=== PATIENT | male | born 1990 | race Caucasian/White ===

== ENCOUNTER 2021-09-11 12:28 | Inpatient (IN) | payer MEDICAID, SELFPAY ==
--- NOTE | 2021-09-11 12:50 | ED_ITS ---
HPI - General Adult General: Chief complaint: Psychiatric Symptoms Stated complaint: ETOH, DRUG PROBLEMS Time Seen by Provider: 09/11/21 12:34 History of Present Illness: HPI: [31]yo patient w/ hx of depression and anxiety BIBA for suicidal ideation with plan and severe anxiety. Patient tells me that his girlfriend Wyatt left him recently and he has been depressed since then. Patient tells me that he plans to cut himself and no longer wants to live anymore. Patient is extremely distressed and feels anxious. Patient tells staff member cannot leave him alone by himself On arrival, the patient is AAOx3 and cooperative with my evaluation. No focal complaints of chest pain, shortness of breath, palpitations, N/V, focal GI/ complaints. No complaints of hallucinations. Onset: acutely x 2 days Duration: ongoing Location: home Severity: severe Associated symptoms: Deny chest pain, dyspnea, nausea, rash, palpitations or vomiting Review of Systems Const: Denies: fever(s) or chills Eyes: Denies: change in vision ENMT: Denies: mouth pain Card: Denies: chest pain or palpitations Resp: Denies: dyspnea or non-productive cough GI: Denies: abdominal pain, nausea, vomiting or diarrhea : Denies: dysuria Musc: Denies: extremity pain Skin/Breast: Denies: rash or new lesions Neuro: Denies: weakness in extremities Psych: Reports: depression, mood swings, panic attacks and suicidal ideation Julio C/Lymph: Denies: easy bruising PFSH ED PFSH: Medical History (Updated 09/11/21 @ 13:02 by Massiel Tobar MD) Anxiety Depression Social History (Updated 09/11/21 @ 13:02 by Massiel Tobar MD) Smoking and tobacco status: former smoker Alcohol intake: current Substance/Drug Use: never Adopted: No Physical Exam Const: COMMON NORMALS: alert HENMT: COMMON NORMALS: atraumatic HEAD & SCALP: atraumatic MOUTH: moist mucous membranes not abnormal Eye: COMMON NORMALS: EOMs intact bilaterally and conjunctivae normal CONJUNCTIVA: Yes conjunctivae normal Neck/C-Spine: COMMON NORMALS: full ROM and supple Resp: COMMON NORMALS: normal respiratory effort and clear to auscultation bilaterally AUSCULTATION: clear to auscultation bilaterally Cardio: COMMON NORMALS: regular rate RATE: regular rate GI: COMMON NORMALS: Soft to palpation and non-tender PALPATION: Yes Soft to palpation Extremity: COMMON NORMALS: full ROM Neuro: SENSORIUM/ORIENTATION: Yes alert MOTOR EXAM: No Abnormal motor strength present and Other motor observations present (no focal motor deficits) Psych: COMMON NORMALS: speech normal SPEECH: Yes normal speech MOOD & AFFECT: Yes depressed mood Course Vital Signs: Vital signs: Vital Signs Temperature 98.8 F 09/11/21 16:37 Pulse Rate 124 H 09/11/21 16:37 Respiratory Rate 18 09/12/21 06:00 Blood Pressure 120/77 09/11/21 16:37 Pulse Oximetry 95 09/11/21 16:37 MDM - General Adult Medical Decision Making [31]yo patient w/ hx of depression and anxiety presenting for SI with plan and severe anxiety. HDS, exam within normal limit Thoughts are linear and organized, and the patient has no AH/VH, or HI. Clinically the patient displays no overt toxidrome; they are well appearing, with low suspicion for toxic ingestion given history and exam. Symptoms unlikely 2/2 anemia, hypothyroidism, infection, or ICH. Workup: CBC, CMP, Lipase, salicylate/tylenol, UDS Lab findings: wnl [2:00pm] On reassessment, labs and workup wnl. Patient is hemodynamically stable with no acute medical complaints. Case discussed with psychiatric provider Dr. Hamm at [facility] psych inpatient with recommendation for admission. Patient received 4mg of IM ativan for severe anxiety. Disposition: Psych Lab Data : 09/11/21 14:16 09/11/21 14:16 Radiology Impressions Hand X-Ray 09/12/21 07:24 IMPRESSION: Normal RIGHT hand. Laboratory Results WBC 5.7 10^3/uL (4.0-10.0) 09/11/21 14:16 RBC 5.27 10^6/uL (4.1-5.3) 09/11/21 14:16 Hgb 15.2 g/dL (11.7-16.6) 09/11/21 14:16 Hct 45.2 % (42.0-52.0) 09/11/21 14:16 MCV 85.8 fl (80-94) 09/11/21 14:16 MCH 28.8 pg (28.0-34.0) 09/11/21 14:16 MCHC 33.6 g/dL (30.0-36.0) 09/11/21 14:16 RDW 12.1 % (12.1-15.1) 09/11/21 14:16 Plt Count 279 10^3/cmm (130-400) 09/11/21 14:16 MPV 9.6 fL (7.4-10.4) 09/11/21 14:16 Neut % (Auto) 50.1 % 09/11/21 14:16 Lymph % (Auto) 39.5 % 09/11/21 14:16 Pennington % (Auto) 8.1 % 09/11/21 14:16 Eos % (Auto) 1.6 % 09/11/21 14:16 Baso % (Auto) 0.5 % 09/11/21 14:16 Neut # (Auto) 2.86 10^3/uL (1.8-7.7) 09/11/21 14:16 Lymph # (Auto) 2.3 10^3/uL (0.8-4.8) 09/11/21 14:16 Pennington # (Auto) 0.5 10^3/uL (0.2-0.9) 09/11/21 14:16 Eos # (Auto) 0.1 10^3/uL (0.0-0.8) 09/11/21 14:16 Baso # (Auto) 0.0 10^3/uL (0.0-0.1) 09/11/21 14:16 Nucleated RBC % (auto) 0 % 09/11/21 14:16 Nucleated RBCs # 0.0 /100WBC 09/11/21 14:16 Sodium 140 mmol/L (136-145) 09/11/21 14:16 Potassium 3.6 mmol/L (3.5-5.1) 09/11/21 14:16 Chloride 102 mmol/L (98-107) 09/11/21 14:16 Carbon Dioxide 23 mmol/L (22-29) 09/11/21 14:16 Anion Gap 18.6 (5-19) 09/11/21 14:16 BUN 11 mg/dL (6-20) 09/11/21 14:16 Creatinine 1.1 mg/dL (0.7-1.2) 09/11/21 14:16 GFR Calculation 77.1 mL/min (90-130) L 09/11/21 14:16 Glucose 129 mg/dL (65-115) H 09/11/21 14:16 Calculated Osmolality 291 mOsm/kg (285-295) 09/11/21 14:16 Calcium 9.0 mg/dL (8.5-10.5) 09/11/21 14:16 Total Bilirubin 0.2 mg/dL (0.15-1.2) 09/11/21 14:16 AST 22 U/L (0-40) 09/11/21 14:16 ALT 20 U/L (0-41) 09/11/21 14:16 Alkaline Phosphatase 74 IU/L (40-130) 09/11/21 14:16 Total Protein 7.2 g/dL (6.6-8.7) 09/11/21 14:16 Albumin 4.8 g/dL (3.5-5.2) 09/11/21 14:16 Globulin 2.4 g/dL (1.3-4.6) 09/11/21 14:16 Lipase 24 U/L (13-60) 09/11/21 14:16 Salicylates < 0.3 mg/dL (3-10) L 09/11/21 14:16 Acetaminophen < 5.0 ug/mL (10-30) L 09/11/21 14:16 Ethyl Alcohol 100 mg/dL (0-10) H 09/11/21 14:16 Discharge Plan Discharge Patient Disposition: Admitted As Inpatient Admit Provider: Julio Hamm Clinical Impression: Depression with suicidal ideation, Anxiety, Panic attack Condition: Stable Coding Level of Care Code ED Private Branch Exchange Service Adviser for Chg Fwd Exam Comprehensive
[2021-09-11 13:00] VITALS: BP 97/60; PULSE 125; TEMP 36.7; O2SAT 97; BMI 21.5
[2021-09-11] MEDS: LORazepam 2 mg/mL INJ 1 mL IM ×2 (13:57→15:59)
[2021-09-11 14:08] VITALS: BP 97/60; PULSE 125; TEMP 36.7; O2SAT 97
[2021-09-11 14:21] LABS: Basophils % 0.5 %; Eosinophils # 0.1 10^3/uL (0.0-0.8); Eosinophils % 1.6 %; Hematocrit 45.2 % (42.0-52.0); Hemoglobin 15.2 g/dL (11.7-16.6); Lymphocytes # 2.3 10^3/uL (0.8-4.8); Lymphocytes % 39.5 %; Mean Corpuscular HGB Conc 33.6 g/dL (30.0-36.0); Mean Corpuscular Hemoglobin 28.8 pg (28.0-34.0); Mean Corpuscular Volume 85.8 fl (80-94); Mean Platelet Volume 9.6 fL (7.4-10.4); Monocytes # 0.5 10^3/uL (0.2-0.9); Monocytes % 8.1 %; Neutrophils # 2.86 10^3/uL (1.8-7.7); Neutrophils % 50.1 %; Nucleated Red Blood Cells % 0 %; Platelet Count 279 10^3/cmm (130-400); Red Blood Count 5.27 10^6/uL (4.1-5.3); Red Cell Distribution Width 12.1 % (12.1-15.1); White Blood Count 5.7 10^3/uL (4.0-10.0)
--- NOTE | 2021-09-11 14:34 | PC.PHAR ---
PT ABLE TO VERIFY NAMES OF MEDICATIONS AND SOME OF THE MG. CALLED [facility] TO VERIFY CHLORPROMAZINE, BOTH METHYLPHENIDATE, OLANZAPINE, VIIBRYD, AND ZALEPLON LAST FILLED AND DAY SUPPLY AND DIRECTIONS. CALLED [facility] TO VERIFY COLANZEPAM, GABAPENTIN, HYDROXYZINE PAMOATE AND XANAX LAST FILLED, DAY SUPPLY AND DIRECTIONS.
[2021-09-11 14:42] LABS: Alanine Aminotransferase 20 U/L (0-41); Albumin Level 4.8 g/dL (3.5-5.2); Alcohol Level 100 mg/dL (0-10); Alkaline Phosphatase 74 IU/L (40-130); Anion Gap 18.6 (5-19); Aspartate Amino Transferase 22 U/L (0-40); Blood Urea Nitrogen 11 mg/dL (6-20); Carbon Dioxide 23 mmol/L (22-29); Chloride 102 mmol/L (98-107); Globulin 2.4 g/dL (1.3-4.6); Glomerular Filtration Rate 77.1 mL/min (90-130); Glucose 129 mg/dL (65-115); Lipase 24 U/L (13-60); Osmolality Calculated 291 mOsm/kg (285-295); Potassium 3.6 mmol/L (3.5-5.1); Sodium 140 mmol/L (136-145); Total Bilirubin 0.2 mg/dL (0.15-1.2); Total Protein 7.2 g/dL (6.6-8.7)
[2021-09-11 14:45] LABS: Acetaminophen < 5.0 ug/mL (10-30); Salicylate < 0.3 mg/dL (3-10)
[2021-09-11] MEDS: ALPRAZolam 0.5 mg Tablet 1 MG PO (15:59)
[2021-09-11] MEDS: nicotine 21 mg Patch 1 PATCH TRANSDERMA (15:59)
--- NOTE | 2021-09-11 16:23 | PC.NURSE ---
Pt was extremely anxious and very particular about his medication. Pt continued to become more agitated, Dr Hamm evaluated. Pt stated taht he wanted to go to [place] but, agreed to go to [facility]. To this nurse's knowledge, Pt does not have a 96hr hold.
[2021-09-11 16:37] VITALS: BP 120/77; PULSE 124; RESP 18; TEMP 37.1; O2SAT 95
--- NOTE | 2021-09-11 16:58 | P.NPUHP_ITS ---
Providers/Chief Complaint Admitting Physician: Julio Hamm MD Primary Care Provider: RAHUL Maguire Chief Complaint: ETOH, DRUG PROBLEMS HPI NPU History of Present Illness Luis Miguel Boss is a 31 year old male who presented to the emergency department with the following report: Chief complaint: Psychiatric Symptoms Stated complaint: ETOH, DRUG PROBLEMS Time Seen by Provider: 09/11/21 12:34 History of Present Illness: HPI: [31]yo patient w/ hx of depression and anxiety BIBA for suicidal ideation with plan and severe anxiety. Patient tells me that his girlfriend Wyatt left him recently and he has been depressed since then. Patient tells me that he plans to cut himself and no longer wants to live anymore. Patient is extremely distressed and feels anxious. Patient tells staff member cannot leave him alone by himself On arrival, the patient is AAOx3 and cooperative with my evaluation. No focal complaints of chest pain, shortness of breath, palpitations, N/V, focal GI/ complaints. No complaints of hallucinations. Onset: acutely x 2 days Duration: ongoing Location: home Severity: severe Associated symptoms: Deny chest pain, dyspnea, nausea, rash, palpitations or vomiting. He was admitted to the neuropsychiatric unit for definitive treatment of those issues. Patient presents today in absolute distress. Trembling panicking and suggested every moment if he does not get some medication or intervention he is going to explode or implode. Significant time was spent with security and the mental health director trying to work with patient to get his needs made in the empathetic way. He vacillated between crying about being there and threatening this keno writer or others. At times he had to be diverted as he threatened to attack other people on the unit and guarded towards him. He was a nearly combative historian as questions would be hijacked to him needing a benzodiazepine of some sort or he is going to lose my mind. There was some question about his medications and initially it was thought that he had overtaken his Klonopin and was in some sort of withdrawal. But eventually was identified that he had been given Klonopin 1 mg 1 daily as needed and has taken 3 of them appropriately. He also had been on Concerta and Ritalin for ADHD and in his panic was asking for Suboxone. He was on a 96-hour hold but now denies having any self-injurious/lethal intent. However we discussed his level of agitation makes it impossible to evaluate him and agreed for discharge with any reasonableness. We discussed that we would continue his medication as best we can and evaluate him for discharge tomorrow if he is able to maintain his demeanor and is able to discontinue his aggressive posturing. Contact with his mother allowed us to assess his lack of overuse of the Klonopin but she expressed extreme concern about his safety. Review of his records show 10 inpatient hospitalizations at this facility between 2011 and 2016 and some limited outpatient services here as well. He denies significant drug use outside of alcohol but some of his records suggest otherwise it was unclear what to take away from his history that is given. An excerpt from his last inpatient hospitalization is provided below for context. Per his 06/05/[address] [facility] inpatient psychiatric evaluation: Date of Service: Jun 05, 2016 Chief Complaint: Depression, suicidal ideation, auditory hallucinations HPI: Mr. Boss 26-year-old male who is known to our behavioral health system, who was brought in by police on a 96 hour hold after expressing suicidal ideation, and auditory hallucinations while in senior living. Mr. Boss was recently discharged from the [facility] in April 2016, he reports that since that time he is had a relapse on alcohol use triggered by a number of psychosocial stressors. In fact it appears that he's had quite intense alcohol use, as he reports that he eventually he started drinking daily to kill himself. Eventually he was picked up by the police and placed in senior living for his safety, and eventually was discharged for breathing contraband into senior living, as he had alcohol in this person. States that he was in senior living for approximately 1 week and after 1 week experience significant worsening depressed mood, hopelessness ray cidal ideation, and also auditory hallucinations specifically in the form of hearing the voice of his grandmother. He states that even prior to his alcohol use that occasionally he would hear voices, and does recall being prescribed Thorazine to help with this. It is unclear at this time the timing of his auditory hallucinations with his drinking pattern. He denies any other substance use. In addition to the symptoms above he does admit to anxiety attacks particularly when he is thinking about recent events, that occasionally may rise to the level of panic. Allergies: Coded Allergies: MILK (Unverified Adverse Reaction, Unknown, cramping,diarrhea, 05/09/16) Pt does not drink milk. Tolerates small amount milk on cereal. Milk ok cooked in foods. Tolerates yogurt, cheese, cot cheese, pudding, ice cream. Uncoded Allergies: ANTIHISTAMINES (Allergy, Unknown, 04/02/12) Active Meds: Current Hospital Medications: Medications (Trade) Dose Ordered Sig/Brenda Route PRN Reason Start Time Stop Time Status Last Admin Dose Admin Lorazepam (Ativan Tab) 0.5 mg Q4H PRN PO FOR MILD ANXIETY 06/04/16 18:30 Lorazepam (Ativan Tab) 1 mg Q4H PRN PO FOR MODERATE ANXIETY 06/04/16 18:30 Lorazepam (Ativan Tab) 2 mg Q4H PRN PO FOR SEVERE ANXIETY 06/04/16 18:30 Lorazepam (Ativan Inj) 2 mg Q4H PRN IM For Severe Aggression 06/04/16 18:30 Haloperidol Lactate (Haldol Inj) 5 mg Q4H PRN IM Severe Aggression 06/04/16 18:30 Diphenhydramine HCl (Benadryl Inj) 50 mg ONCE PRN IV Severe Extrapyramidal Symptoms 06/04/16 18:30 Benztropine Mesylate (Cogentin Tab) 1 mg BID PRN PO Mild Extrapyramidal symptoms 06/04/16 18:30 Benztropine Mesylate (Cogentin Inj) 1 mg ONCE PRN IM Severe Extrapyramidal Symptom 06/04/16 18:30 Acetaminophen (Tylenol Tab) 650 mg Q4H PRN PO FOR MILD PAIN 06/04/16 18:30 Nicotine (Nicoderm Patch) 21 mg DAILY PRN TD FOR WITHDRAWAL 06/04/16 18:30 Nicotine Polacrilex (Nicotine Gum) 2 mg Q2H PRN PO Withdrawal 06/04/16 18:30 Haloperidol (Haldol Tab) 5 mg Q4H PRN PO For agitation 06/04/16 18:30 Lorazepam (Ativan Tab) 2 mg Q4H PRN PO FOR AGITATION 06/04/16 18:30 Trazodone HCl (Trazodone) 100 mg BEDTIME PO 06/04/16 22:00 06/04/16 21:35 Olanzapine (Zyprexa Zydis) 5 mg BID PRN PO AGITATION 06/04/16 21:00 Thiamine Mononitrate (Thiamine Tab) 100 mg DAILY PO 06/06/16 10:00 Multivitamins Therapeutic (Therapeutic Multivitamin) 1 ea DAILY PO 06/05/16 10:00 06/05/16 10:06 Folic Acid/ Cyanocobalamin/ pyridoxin (Folic Acid Tab) 1 mg DAILY PO 06/05/16 10:00 06/05/16 10:06 Lorazepam (Ativan Inj) 2 mg PRN PRN IV FOR WITHDRAWAL 06/05/16 09:15 Lorazepam (Ativan Inj) 2 mg PRN PRN IM for Withdrawal 06/05/16 09:15 Lorazepam (Ativan Tab) 2 mg PRN PRN PO Withdrawal 06/05/16 09:15 Past Medical History Past Medical History: Is as per HPI, history: Details are unchanged from the last admission PAST PSYCHIATRIC HISTORY: -Did not follow-up at [facility] as scheduled because he was in senior living -States that he had not been taking his medications as prescribed which at this time were Viibryd, trazodone, gabapentin PAST FAMILY PSYCHIATRIC HISTORY: -Non-contributory SOCIAL HISTORY: -Recently in senior living as described in HPI PAST MEDICAL HISTORY: -None active Meds NPU Home Medications Medication Instructions Recorded Confirmed Last Taken Type clonazepam 1 mg tablet 1 mg PO DAILY PRN 09/11/21 09/13/21 Unknown History gabapentin 400 mg capsule 800 mg PO TID 09/11/21 09/13/21 Unknown History hydroxyzine pamoate 50 mg capsule 50 mg PO BID 09/11/21 09/13/21 Unknown History methylphenidate HCl 10 mg tablet 10 mg PO DAILY 09/11/21 09/13/21 Unknown History methylphenidate HCl 18 mg 18 mg PO DAILY 09/11/21 09/13/21 Unknown History tablet,extended release 24 hr olanzapine 5 mg tablet 5 mg PO DAILY 09/11/21 09/13/21 Unknown History zaleplon 10 mg capsule 20 mg PO BEDTIME 09/11/21 09/13/21 Unknown History Allergies Allergy/AdvReac Type Severity Reaction Status Date / Time diphenhydramine Allergy Unknown Verified 09/13/21 17:58 [From Benadryl] hydroxyzine [From Vistaril] Allergy Unknown Verified 09/13/21 17:58 PFSH NPU PFSH: Medical History Anxiety Depression Social History Smoking and tobacco status: former smoker Alcohol intake: current Adopted: No Mental Status Exam MSE Comments: This is a well-nourished well-developed white male in hospital scrubs with red hair with adequate grooming and eye contact. No abnormal movements except for significant psychomotor agitation. Mostly uncooperative with exam in moderate to extreme distress. Speech was increased rate and volume. Mood described as pissed affect congruent. Thought process organized. Thought content: Patient denied suicidal but endorsed homicidal ideation, no delusions reported noted, he denied auditory visual hallucinations. Attention and concentration were limited and memory was unreliable at times reliable at others but none were formally tested. He is alert and oriented x3. Insight and judgment are impaired and impulse control is impaired. Vitals/I&O/Wt Last Vital Signs Temp 98.8 F 09/11/21 16:37 Pulse 124 H 09/11/21 16:37 Resp 18 09/11/21 16:37 BP 120/77 09/11/21 16:37 Pulse Ox 95 09/11/21 16:37 Weight last 48 hrs Weight 68.039 kg Data NPU : 09/11/21 14:16 09/11/21 14:16 A&P Assessment and plan (1) Anxiety: Status: Acute (2) Panic attack: Status: Acute (3) Depression with suicidal ideation: Status: Resolved (4) ADHD (attention deficit hyperactivity disorder), combined type: Status: Acute (5) ALIDA (generalized anxiety disorder): Status: Acute Plan This is a 31-year-old white male with a long history of ADHD, anxiety and mental health challenges with multiple inpatient hospitalizations the last of which was in 2017 who presents in great distress vacillating between saying he needs to stay for multiple interventions and needing discharged so he can go to [facility] for what he believes to be more specific treatment. 1. Continue current medication. And work with his outpatient team to determine any planned interventions given the controlled substances that are part of his regular treatment. 2. Continue every 15 minute checks for safety. 3. Encourage individual, group and milieu therapies. 4. Encourage sober living treatment after discharge at the highest level of care to which he is willing to commit. Significant concerns for addictive behavior exist. Involuntary Hold Information 96 Hour Hold: 96 Hour Involuntary Admission: Yes 96 Hour Hold Ending Date: 09/17/21 96 Hour Hold Ending Time: 15:45 Attestations NPU Medical Necessity Statement*: Inpatient hospitalization is medically necessary and the clinically appropriate intervention at this time. We will monitor medication to make changes as indicated. Patient will be in the hospital for over two midnights. Likely length of stay 3 to 5 days. However patient is demanding discharge and not willing to engage in treatment here with significant volatility. If he is able to maintain himself and collaboration with supports like his mother suggest allowing him to discharge and pursue treatment elsewhere may be considered after evaluation over the next 24 hours. Coding Level of Care Code Acute Manager Packaging for Gabriel Fwd Diagnoses Anxiety F41.9 Panic attack F41.0 Depression with suicidal ideation F32.A; R45.851 ADHD (attention deficit hyperactivity disorder), combined type F90.2 ALIDA (generalized anxiety disorder) F41.1
[2021-09-11] MEDS: CLONazepam 1 mg Tablet PO (17:05)
[2021-09-11] MEDS: acetaminophen 325 mg Tablet 650 MG PO (18:01)
[2021-09-11] MEDS: ziprasidone 20 mg/mL SDV IM (18:10)
--- NOTE | 2021-09-11 18:21 | PC.NURSE ---
BEHAVIOR/CODE 10/PRN GEODON UPON ARRIVAL TO UNIT, PT IS EXTREMELY DISRUPTIVE, SECURITY ON UNIT, PT CURSING AND VERBALLY AGGRESSIVE WITH STAFF/OTHER NPU PATIENTS. PT THREATENING STAFF I WILL PUNCH ANY MOTHER FUCKER IN THE FACE HERE! PT DEMANDING TO BE DISCHARGED OR HAVE ALL HIS MEDICATIONS RESTARTED AND GIVEN TO HIM THIS INSTANT. DR. ISAAC ON UNIT & SPOKE TO PATIENT ABOUT GETTING HOME MEDS RECONCILED, SEVERAL PHARMACIES CONTACTED CONCERNING MEDICATIONS, DR. ISAAC AGREEABLE TO START KLONOPIN 1 MG TID, FIRST DOSE TONIGHT. PT EDUCATED ON MED RECONCILIATION. PT VERY UPSET, CONT TO BE VERBALLY AGGRESSIVE. DR. ISAAC GAVE VERBAL ORDER FOR PRN GEODON IM, PT AGREEABLE TO TAKING IM GEODON. WHEN THIS NURSE WENT TO GIVE INJECTION, PT JUMPED UP AND WAS ATTEMPTING TO CHARGE AT ANOTHER MALE PATIENT ON THE UNIT SAYING I'LL PUNCH YOU IN THE FACE RIGHT NOW MOTHER FUCKER! STAFF QUICKLY INTERVENED & PATIENTS PRIOR TO ANY PHYSICAL CONTACT. PT YELLING AT THIS NURSE THAT INJECTION BETTER BE ATIVAN OR ELSE I'M NOT TAKING IT! PT EDUCATED ABOUT PRN GEODON, PT AGREEABLE TO TAKING PRN IM GEODON, INJECTION GIVEN IN LEFT DELTOID. AFTER INJECTION GIVEN, PT WENT TO HIS ROOM, STAFF FOLLOWING CLOSELY, PT TOOK BLANKET OFF HIS BED AND WRAPPED IT AROUND HIS NECK. STAFF X3 & SECURITY PUT HANDS ON PATIENT AND ASSIST TO GET BLANKET OFF FROM AROUND PATIENT'S NECK. CODE 10 CALLED AT THIS TIME PER DR. ISAAC REQUEST, CODE ALSO CANCELLED PER SECURITY/NPU DIRECTOR. PT CONT TO YELL/DEMAND TO BE DISCHARGED. EDUCATED PT THAT HE IS ON A COURT ORDERED HOLD, WILL NOT BE DISCHARGED TODAY. PT ABLE TO CALM DOWN AFTER INJECTION, MOVED TO ROOM 151 DIRECTLY ACROSS FROM NURSES STATION FOR CLOSE MONITORING.
--- NOTE | 2021-09-11 18:53 | PC.NURSE ---
Behaviors PT HAS BEEN VERY AGITATED SINCE ADMISSION. WHEN INFORMED HE WAS ON 96 HOUR HOLD WAS AGITATED. STARTED YELLING AT STAFF AND PATIENTS, I'LL HIT ANY MOTHER FUCKER IN THE FACE, SAY SOMETHING. CONTINUES TO DEMAND HE IS DISCHARGED AND GO TO [facility]. MEDICATION LIST VERIFIED WITH MULTIPLE PHARMACIES. WAS UPSET THAT [place]aw[facility] WOULD NOT START RITALIN 10 MG AND CONCERTA 18 MG. KLONAPAM 1 MG TID STARTED FOR ANXIETY. REQUESTED SOMETHING TO EAT. DINNER TRAY GIVEN. CONSUMED 50% OF MEAL AND DRANK 360 MLS OF FLUIDS. CONTINUED TO YELL AND SCREAM AT STAFF, DR. ISAAC AND PATIENTS. REQUESTING HE GET A SHOT. NEW ORDER RECEIVED FOR GEODON 20 MG IM. ONCE LADLE CLEANER WENT TO GIVE SHOT STARTED YELLING THAT BETTER BE FUCKING ATIVAN OR IM NOT TAKING IT. VERBALLY REDIRECED FINALLY DID AGREE TO TAKE GEODON 20MG IM. SHORTLY AFTER INJECTION BEGAN TO CALM DOWN. HOT ROOM ATTENDANT AND SECURITY REMAINED AT BEDSIDE UNTIL PATIENT WAS CALM AND WENT TO SLEEP.
[2021-09-11 21:17] VITALS: RESP 18
[2021-09-12] MEDS: LORazepam 2 mg/mL INJ 1 mL IM (01:28)
[2021-09-12] MEDS: ibuprofen 600 mg Tablet PO (01:41)
--- NOTE | 2021-09-12 01:44 | PC.NURSE ---
Patient woke up anxious with tremors. Pt request Ativan as that is what works best for him. He showed TAPPER HAND his right hand that was swollen. Pt states he punched something last night when he had severe agitation. Pt request staff escort him to get the xray right now. TAPPER HAND informed pt that it will be completed in the morning, pt verbalized understanding and was not upset. Pt did request Ibuprofen and nicotine gum and it was given. Pt was given a snack and drink and is now up in the day room watching tv.
[2021-09-12] MEDS: nicotine 2 mg Gum BUCCAL ×6 (01:50→13:47)
[2021-09-12] MEDS: CLONazepam 1 mg Tablet PO ×2 (03:59→09:48)
--- NOTE | 2021-09-12 04:35 | PC.NURSE ---
patient states he is very anxious, states he is getting agitated. I want to leave I am gonna freak out if I have to stay even one more day . he is asking for geodeon which he received yesterday IM.
--- NOTE | 2021-09-12 04:41 | PC.NURSE ---
Pt came to nurses station asking when the provider will be here. Pt states he has to get out of here today. TRAUMA DOCTOR let him know it would not be until later this morning as it is on 439. Pt verbalized understanding.
[2021-09-12] MEDS: ziprasidone 20 mg/mL SDV IM (04:47)
[2021-09-12 06:00] VITALS: RESP 18
--- NOTE | 2021-09-12 07:24 | XR_ITS ---
WS: [id number] RIGHT HAND: 3 VIEW(S) TECHNIQUE: PA, oblique and lateral. HISTORY: swollen hand after punching bench, injury fifth finger. COMPARISON: None available. No acute fracture or dislocation. No soft tissue or bone abnormality. XR/XR hand RT min 3V* [id number] IMPRESSION: Normal RIGHT hand.
[2021-09-12] MEDS: acetaminophen 325 mg Tablet 650 MG PO (07:47)
[2021-09-12] MEDS: haloperidol 5 mg Tablet PO (10:40)
[2021-09-12] MEDS: benztropine 1 mg Tablet PO (10:40)
[2021-09-12] MEDS: OLANZapine 5 mg ODT PO (11:13)
--- NOTE | 2021-09-12 13:12 | W.PM.NPUDCS ---
Reason for Visit Reason for Visit: ETOH, DRUG PROBLEMS Brief History: History of Present Illness Luis Miguel Boss is a 31 year old male who presented to the emergency department with the following report: Chief complaint: Psychiatric Symptoms Stated complaint: ETOH, DRUG PROBLEMS Time Seen by Provider: 09/11/21 12:34 History of Present Illness:?? HPI: [31]yo patient w/ hx of depression and anxiety BIBA for suicidal ideation with plan and severe anxiety. Patient tells me that his girlfriend Wyatt left him recently and he has been depressed since then.? Patient tells me that he plans to cut himself and no longer wants to live anymore.? Patient is extremely distressed and feels anxious.? Patient tells staff member cannot leave him alone by himself On arrival, the patient is AAOx3 and cooperative with my evaluation. No focal complaints of chest pain, shortness of breath, palpitations, N/V, focal GI/ complaints. No complaints of hallucinations. Onset: acutely x 2 days Duration: ongoing Location: home Severity: severe Associated symptoms: Deny chest pain, dyspnea, nausea, rash, palpitations or vomiting. He was admitted to the neuropsychiatric unit for definitive treatment of those issues.? Patient presents today in absolute distress.? Trembling panicking and suggested every moment if he does not get some medication or intervention he is going to explode or implode.? Significant time was spent with security and the mental health director trying to work with patient to get his needs made in the empathetic way.? He vacillated between crying about being there and threatening this fiction and nonfiction prose writer or others.? At times he had to be diverted as he threatened to attack other people on the unit and guarded towards him.? He was a nearly combative historian as questions would be hijacked to him needing a benzodiazepine of some sort or he is going to lose my mind. ? There was some question about his medications and initially it was thought that he had overtaken his Klonopin and was in some sort of withdrawal.? But eventually was identified that he had been given Klonopin 1 mg 1 daily as needed and has taken 3 of them appropriately.? He also had been on Concerta and Ritalin for ADHD and in his panic was asking for Suboxone.? He was on a 96-hour hold but now denies having any self-injurious/lethal intent.? However we discussed his level of agitation makes it impossible to evaluate him and agreed for discharge with any reasonableness.? We discussed that we would continue his medication as best we can and evaluate him for discharge tomorrow if he is able to maintain his demeanor and is able to discontinue his aggressive posturing.? Contact with his mother allowed us to assess his lack of overuse of the Klonopin but she expressed extreme concern about his safety.? Review of his records show 10 inpatient hospitalizations at this facility between 2011 and 2016 and some limited outpatient services here as well.? He denies significant drug use outside of alcohol but some of his records suggest otherwise it was unclear what to take away from his history that is given.? An excerpt from his last inpatient hospitalization is provided below for context. Per his 06/05/2016 [facility] inpatient psychiatric evaluation: Date of Service: Jun 05, 2016 Chief Complaint: Depression, suicidal ideation, auditory hallucinations HPI: Mr. Boss 26-year-old male who is known to our behavioral health system, who was brought in by police on a 96 hour hold after expressing suicidal ideation, and auditory hallucinations while in detention. Mr. Boss was recently discharged from the NPU in April 2016, he reports that since that time he is had a relapse on alcohol use triggered by a number of psychosocial stressors.? In fact it appears that he's had quite intense alcohol use, as he reports that he eventually he started drinking daily to kill himself.? Eventually he was picked up by the police and placed in detention for his safety, and eventually was discharged for breathing contraband into detention, as he had alcohol in this person.? States that he was in detention for approximately 1 week and after 1 week experience significant worsening depressed mood, hopelessness suicidal ideation, and also auditory hallucinations specifically in the form of hearing the voice of his grandmother. He states that even prior to his alcohol use that occasionally he would hear voices, and does recall being prescribed Thorazine to help with this.? It is unclear at this time the timing of his auditory hallucinations with his drinking pattern.? He denies any other substance use. In addition to the symptoms above he does admit to anxiety attacks particularly when he is thinking about recent events, that occasionally may rise to the level of panic. Allergies: Coded Allergies: ?? ? MILK (Unverified? Adverse Reaction, Unknown, cramping,diarrhea, 05/09/16) Pt does not drink milk. Tolerates small amount milk on cereal. Milk ok cooked in foods. Tolerates yogurt, cheese, cot cheese, pudding, ice cream. Uncoded Allergies: ?? ? ANTIHISTAMINES (Allergy, Unknown, 04/02/12) Active Meds: Current Hospital Medications: ?Medications ? (Trade) ?Dose ?Ordered ?Sig/Brenda ?Route ?PRN Reason ?Start Time ?Stop Time Status Last Admin Dose Admin ?Lorazepam ? (Ativan Tab) ?0.5 mg ?Q4H? PRN ?PO ?FOR MILD ANXIETY ?06/04/16 18:30 ?Lorazepam ? (Ativan Tab) ?1 mg ?Q4H? PRN ?PO ?FOR MODERATE ANXIETY ?06/04/16 18:30 ?Lorazepam ? (Ativan Tab) ?2 mg ?Q4H? PRN ?PO ?FOR SEVERE ANXIETY ?06/04/16 18:30 ?Lorazepam ? (Ativan Inj) ?2 mg ?Q4H? PRN ?IM ?For Severe Aggression ?06/04/16 18:30 ?Haloperidol ?Lactate ? (Haldol Inj) ?5 mg ?Q4H? PRN ?IM ?Severe Aggression ?06/04/16 18:30 ?Diphenhydramine ?HCl ? (Benadryl Inj) ?50 mg ?ONCE? PRN ?IV ?Severe Extrapyramidal Symptoms ?06/04/16 18:30 ?Benztropine ?Mesylate ? (Cogentin Tab) ?1 mg ?BID? PRN ?PO ?Mild Extrapyramidal symptoms ?06/04/16 18:30 ?Benztropine ?Mesylate ? (Cogentin Inj) ?1 mg ?ONCE? PRN ?IM ?Severe Extrapyramidal Symptom ?06/04/16 18:30 ?Acetaminophen ? (Tylenol Tab) ?650 mg ?Q4H? PRN ?PO ?FOR MILD PAIN ?06/04/16 18:30 ?Nicotine ? (Nicoderm Patch) ?21 mg ?DAILY? PRN ?TD ?FOR WITHDRAWAL ?06/04/16 18:30 ?Nicotine ?Polacrilex ? (Nicotine Gum) ?2 mg ?Q2H? PRN ?PO ?Withdrawal ?06/04/16 18:30 ?Haloperidol ? (Haldol Tab) ?5 mg ?Q4H? PRN ?PO ?For agitation ?06/04/16 18:30 ?Lorazepam ? (Ativan Tab) ?2 mg ?Q4H? PRN ?PO ?FOR AGITATION ?06/04/16 18:30 ?Trazodone HCl ? (Trazodone) ?100 mg ?BEDTIME ?PO ? ?06/04/16 22:00 ? ? 06/04/16 21:35 ? ?Olanzapine ? (Zyprexa Zydis) ?5 mg ?BID? PRN ?PO ?AGITATION ?06/04/16 21:00 ?Thiamine ?Mononitrate ? (Thiamine Tab) ?100 mg ?DAILY ?PO ? ?06/06/16 10:00 ?Multivitamins ?Therapeutic ? (Therapeutic ?Multivitamin) ?1 ea ?DAILY ?PO ? ?06/05/16 10:00 ? ? 06/05/16 10:06 ? ?Folic Acid/ ?Cyanocobalamin/ ?pyridoxin ? (Folic Acid Tab) ?1 mg ?DAILY ?PO ? ?06/05/16 10:00 ? ? 06/05/16 10:06 ? ?Lorazepam ? (Ativan Inj) ?2 mg ?PRN? PRN ?IV ?FOR WITHDRAWAL ?06/05/16 09:15 ?Lorazepam ? (Ativan Inj) ?2 mg ?PRN? PRN ?IM ?for Withdrawal ?06/05/16 09:15 ?Lorazepam ? (Ativan Tab) ?2 mg ?PRN? PRN ?PO ?Withdrawal ?06/05/16 09:15 ? Past Medical History Past Medical History: Is as per HPI, history: Details are unchanged from the last admission PAST PSYCHIATRIC HISTORY: -Did not follow-up at [facility] as scheduled because he was in detention -States that he had not been taking his medications as prescribed which at this time were Viibryd, trazodone, gabapentin PAST FAMILY PSYCHIATRIC HISTORY: -Non-contributory SOCIAL HISTORY: -Recently in detention as described in HPI PAST MEDICAL HISTORY: -None active Hospital Course Hospital Course He slowly acclimated to the individual, group and milieu therapies provided. We continued his medications. He had significant improvement but was unwilling to really engage in treatment with our facility. He was able to control his impulses over the observation. And was advised that if he really believes that the [facility] had a better treatment plan for him that he would have to go there directly because if he returns to our emergency department we are obligated to treat him here given we have the resources. He has a very specific idea about exactly what needs to be done and is not open to other recommendations. He was able to contract for safety, outside the hospital prior to discharge. His mother was involved in some of the decision-making and expressed significant concerns about him but agreed to be supportive in his discharge during the hospitalization, patient had routine laboratory studies which were within normal limits except for few outliers. Additionally there was a general medical evaluation which was also within normal limits and revealed no new acute processes. Discharge Summary: At the time of discharge, he denied psychosis or lethality. Mood and anxiety were well managed. Patient endorsed a plan to avoid all drugs of abuse and follow-up with the aftercare recommendations of the treatment team. Patient was evaluated and deemed to be absent credible lethality, and had achieved the maximum benefit from an inpatient hospitalization, so was discharged. Involuntary Hold Information 96 Hour Hold: 96 Hour Involuntary Admission: Yes 96 Hour Hold Ending Date: 09/17/21 96 Hour Hold Ending Time: 15:45 Mental Status Exam MSE Comments: This is a well-nourished well-developed white male in hospital scrubs with red hair with adequate grooming and eye contact.? No abnormal movements.? Cooperative with exam in no acute distress.? Speech was normal rate and volume.? Mood described as much better, affect congruent.? Thought process organized.? Thought content: Patient denied suicidal but endorsed homicidal ideation, no delusions reported noted, he denied auditory visual hallucinations.? Attention and concentration were limited and memory was unreliable at times reliable at others but none were formally tested.? He is alert and oriented x3.? Insight and judgment are limited and impulse control is limited. Discharge Data Studies Completed and Pending: Completed Studies During Hospitalization Category Date Time Status XR hand RT min 3V * [id number] Routine Exams 09/12/21 07:24 Completed Pending at discharge Category Date Time Status Drug Screen, Urin e Stat Lab 09/11/21 14:07 Ordered Radiology Impressions Hand X-Ray 09/12/21 07:24 IMPRESSION: Normal RIGHT hand. Laboratory Results WBC 5.7 10^3/uL (4.0- 10.0) 09/11/21 14:16 RBC 5.27 10^6/uL (4.1 -5.3) 09/11/21 14:16 Hgb 15.2 g/dL (11.7-1 6.6) 09/11/21 14:16 Hct 45.2 % (42.0-52.0 ) 09/11/21 14:16 MCV 85.8 fl (80-94) 09/11/21 14:16 MCH 28.8 pg (28.0-34. 0) 09/11/21 14:16 MCHC 33.6 g/dL (30.0-3 6.0) 09/11/21 14:16 RDW 12.1 % (12.1-15.1 ) 09/11/21 14:16 Plt Count 279 10^3/cmm (130 -400) 09/11/21 14:16 MPV 9.6 fL (7.4-10.4) 09/11/21 14:16 Neut % (Auto) 50.1 % 09/11/21 14:16 Lymph % (Auto) 39.5 % 09/11/21 14:16 [place] % (Auto) 8.1 % 09/11/21 14:16 Eos % (Auto) 1.6 % 09/11/21 14:16 Baso % (Auto) 0.5 % 09/11/21 14:16 Neut # (Auto) 2.86 10^3/uL (1.8 -7.7) 09/11/21 14:16 Lymph # (Auto) 2.3 10^3/uL (0.8- 4.8) 09/11/21 14:16 [place] # (Auto) 0.5 10^3/uL (0.2- 0.9) 09/11/21 14:16 Eos # (Auto) 0.1 10^3/uL (0.0- 0.8) 09/11/21 14:16 Baso # (Auto) 0.0 10^3/uL (0.0- 0.1) 09/11/21 14:16 Nucleated RBC % (a uto) 0 % 09/11/21 14:16 Nucleated RBCs # 0.0 /100WBC 09/11/21 14:16 Sodium 140 mmol/L (136-1 45) 09/11/21 14:16 Potassium 3.6 mmol/L (3.5-5 .1) 09/11/21 14:16 Chloride 102 mmol/L (98-10 7) 09/11/21 14:16 Carbon Dioxide 23 mmol/L (22-29) 09/11/21 14:16 Anion Gap 18.6 (5-19) 09/11/21 14:16 BUN 11 mg/dL (6-20) 09/11/21 14:16 Creatinine 1.1 mg/dL (0.7-1. 2) 09/11/21 14:16 GFR Calculation 77.1 mL/min (90-1 30) L 09/11/21 14:16 Glucose 129 mg/dL (65-115 ) H 09/11/21 14:16 Calculated Osmolal ity 291 mOsm/kg (285- 295) 09/11/21 14:16 Calcium 9.0 mg/dL (8.5-10 .5) 09/11/21 14:16 Total Bilirubin 0.2 mg/dL (0.15-1 .2) 09/11/21 14:16 AST 22 U/L (0-40) 09/11/21 14:16 ALT 20 U/L (0-41) 09/11/21 14:16 Alkaline Phosphata se 74 IU/L (40-130) 09/11/21 14:16 Total Protein 7.2 g/dL (6.6-8.7 ) 09/11/21 14:16 Albumin 4.8 g/dL (3.5-5.2 ) 09/11/21 14:16 Globulin 2.4 g/dL (1.3-4.6 ) 09/11/21 14:16 Lipase 24 U/L (13-60) 09/11/21 14:16 Salicylates < 0.3 mg/dL (3-10 ) L 09/11/21 14:16 Acetaminophen < 5.0 ug/mL (10-3 0) L 09/11/21 14:16 Ethyl Alcohol 100 mg/dL (0-10) H 09/11/21 14:16 Vitals: Last Vital Signs Temp 98.8 F 09/11/21 16:37 Pulse 124 H 09/11/21 16:37 Resp 18 09/12/21 06:00 BP 120/77 09/11/21 16:37 Pulse Ox 95 09/11/21 16:37 Discharge Plan Discharge Patient Disposition: Home Condition: Stable Prescriptions: Continued methylphenidate HCl 10 mg tablet 10 mg PO DAILY 0RF olanzapine 5 mg tablet 5 mg PO DAILY 0RF clonazepam 1 mg Tablet 1 mg PO DAILY PRN (Reason: Anxiety) 0RF hydroxyzine pamoate 50 mg Capsule 50 mg PO BID 0RF zaleplon 10 mg capsule 20 mg PO BEDTIME 0RF methylphenidate HCl 18 mg tablet extended release 24hr 18 mg PO DAILY 0RF gabapentin 400 mg Capsule 800 mg PO TID 0RF Discontinued alprazolam [Xanax] 1 mg Tablet 1 mg PO TID 0RF chlorpromazine 50 mg tablet 100 mg PO BEDTIME 0RF Viibryd 40 mg tablet 40 mg PO DAILY 0RF Discharge Orders: Discharge Order (Routine); Ordered 09/12/21 Ordered By: Julio Hamm Referrals: Ailyn Joseph MD [Other] - 10/02/21 1:45 pm Discharge Diet: Regular Discharge Activity: Resume usual activity Patient Instructions: Opioid Safety Discharge Attestations NPU Time Spent in Discharge Care*: less than 30 min Specific Discharge Activities: Specific discharge activities: educating patient, discussing with case manager specialist/social workers/dc planners, documenting/other paperwork and evaluating patient/reviewing data Coding Level of Care Code Acute Chg FW DC note
[2021-09-12 13:15] VITALS: RESP 18
[2021-09-12 14:00] VITALS: BP 120/77; PULSE 124; RESP 18; TEMP 37.1; O2SAT 95
== END 2021-09-12 14:42 | disposition home or self-care (01) | DRG 881 ==
LOC: ER 13:36 → NP 15:02
PROVIDERS: Admitting Provider Psychiatry & Neurology Psychiatry; Emergency Provider Emergency Medicine; PCP Nurse Practitioner; Visit Provider Psychiatry & Neurology Psychiatry
DX: F32.A Depression, unspecified (principal); R45.851 Suicidal ideations; F41.1 Generalized anxiety disorder; Z87.891 Personal history of nicotine dependence; Z63.0 Problems in relationship with spouse or partner; F41.0 Panic disorder [episodic paroxysmal anxiety]; F90.9 Attention-deficit hyperactivity disorder, unspecified type
CPT/HCPCS: 73130; 80053; 80307; 83690; 85025; 96372; 99285; J2060; J3486

== ENCOUNTER 2021-09-13 08:10 | Inpatient (IN) | payer MEDICAID, SELFPAY ==
--- NOTE | 2021-09-13 08:19 | W.ED.PSYCHS ---
HPI - Psych General: Stated Complaint: SI/ WITHDRAWALS/ INTOXICATED Time Seen by Provider: 09/13/21 08:15 [facility] ED PFSH: Medical History (Updated 09/13/21 @ 00:01 by ) Anxiety Depression Social History (Updated 09/11/21 @ 13:02 by Massiel Tobar MD) Smoking and tobacco status: former smoker Alcohol intake: current Adopted: No Discharge Plan Discharge Condition: Stable Prescriptions: No Action methylphenidate HCl 10 mg tablet 10 mg PO DAILY 0RF olanzapine 5 mg tablet 5 mg PO DAILY 0RF clonazepam 1 mg Tablet 1 mg PO DAILY PRN (Reason: Anxiety) 0RF hydroxyzine pamoate 50 mg Capsule 50 mg PO BID 0RF zaleplon 10 mg capsule 20 mg PO BEDTIME 0RF methylphenidate HCl 18 mg tablet extended release 24hr 18 mg PO DAILY 0RF gabapentin 400 mg Capsule 800 mg PO TID 0RF Referrals: Norman Bhatti, SANITATION WORKER [employer]OSING MACHINERY [Primary Care Provider] - Coding Level of Care Code ED Data Collector for Gabriel Guerrero
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
[2021-09-13 08:46] LABS: Amphetamines Screen Urine Negative (Negative); Barbiturates Screen Urine Negative (Negative); Benzodiazepines Screen Urine Positive (Negative); Cocaine Screen Urine Negative (Negative); Opiate Screen Urine Negative (Negative); PCP Screen Urine Negative (Negative); THC Screen Urine Negative (Negative)
[2021-09-13 08:57] VITALS: BP 94/57; PULSE 95; RESP 14; O2SAT 93
[2021-09-13 09:22] LABS: Basophils % 0.5 %; Eosinophils # 0.1 10^3/uL (0.0-0.8); Hematocrit 39.6 % (42.0-52.0); Hemoglobin 13.5 g/dL (11.7-16.6); Lymphocytes # 1.6 10^3/uL (0.8-4.8); Lymphocytes % 25.2 %; Mean Corpuscular HGB Conc 34.1 g/dL (30.0-36.0); Mean Corpuscular Hemoglobin 28.7 pg (28.0-34.0); Mean Corpuscular Volume 84.1 fl (80-94); Mean Platelet Volume 9.9 fL (7.4-10.4); Monocytes # 0.6 10^3/uL (0.2-0.9); Monocytes % 9.4 %; Neutrophils # 3.92 10^3/uL (1.8-7.7); Neutrophils % 63.7 %; Nucleated Red Blood Cells % 0 %; Platelet Count 255 10^3/cmm (130-400); Red Blood Count 4.71 10^6/uL (4.1-5.3); Red Cell Distribution Width 11.9 % (12.1-15.1); White Blood Count 6.2 10^3/uL (4.0-10.0)
[2021-09-13 09:36] LABS: Alanine Aminotransferase 19 U/L (0-41); Albumin Level 4.6 g/dL (3.5-5.2); Alcohol Level 211 mg/dL (0-10); Alkaline Phosphatase 67 IU/L (40-130); Anion Gap 16.6 (5-19); Aspartate Amino Transferase 31 U/L (0-40); Blood Urea Nitrogen 10 mg/dL (6-20); Calcium 8.5 mg/dL (8.5-10.5); Carbon Dioxide 24 mmol/L (22-29); Chloride 109 mmol/L (98-107); Globulin 2.1 g/dL (1.3-4.6); Glomerular Filtration Rate 97.2 mL/min (90-130); Glucose 101 mg/dL (65-115); Osmolality Calculated 301 mOsm/kg (285-295); Potassium 3.6 mmol/L (3.5-5.1); Sodium 146 mmol/L (136-145); Total Bilirubin 0.2 mg/dL (0.15-1.2); Total Protein 6.7 g/dL (6.6-8.7)
[2021-09-13] MEDS: ziprasidone 20 mg/mL SDV 10 MG IM ×2 (09:36→10:53)
[2021-09-13] MEDS: LORazepam 2 mg/mL INJ 1 mL IM (09:37)
[2021-09-13 09:56] LABS: Acetaminophen < 5.0 ug/mL (10-30); Salicylate < 0.3 mg/dL (3-10)
--- NOTE | 2021-09-13 10:12 | PC.PHAR ---
pt unable to verify medications due to agitation. meds verified by [facility].
--- NOTE | 2021-09-13 12:02 | PC.NURSE ---
Arm restraints removed 1159.
[2021-09-13 14:32] VITALS: BP 127/70; PULSE 88; RESP 17; O2SAT 97
[2021-09-13 16:54] LABS: Glucose Point of Care 97 mg/dL (70-110)
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
[2021-09-13] MEDS: OLANZapine 5 mg ODT PO (18:10)
[2021-09-13] MEDS: gabapentin 400 mg Capsule 800 MG PO (18:11)
[2021-09-13] MEDS: ziprasidone 20 mg/mL SDV IM (18:12)
[2021-09-13 18:16] VITALS: RESP 14
[2021-09-13] MEDS: nicotine 2 mg Gum BUCCAL (18:20)
[2021-09-13 21:37] VITALS: RESP 16
--- NOTE | 2021-09-14 02:08 | PC.NURSE ---
Sitter with the patient until 0200 1:1. Patient has been sleeping since the beginning of the shift. Unable to justify keeping the 1:1 at this time. Call made to Dr. Hamm. Ok to complete the 1:1 for now. Order for 1:1 completed by this pattern chart writer. Will monitor for future needs.
[2021-09-14 05:35] VITALS: BMI 23.2
[2021-09-14] MEDS: CLONazepam 1 mg Tablet PO (07:33)
[2021-09-14] MEDS: OLANZapine 5 mg TABLET PO (07:33)
[2021-09-14] MEDS: gabapentin 400 mg Capsule 800 MG PO ×3 (07:33→19:48)
[2021-09-14] MEDS: nicotine 2 mg Gum BUCCAL ×4 (07:33→15:03)
[2021-09-14] MEDS: methylphenidate 10 mg Tablet PO (07:33)
[2021-09-14 07:37] VITALS: BP 121/80; PULSE 70; RESP 18; TEMP 36.7; O2SAT 98
--- NOTE | 2021-09-14 08:31 | P.NPUHP_ITS ---
Providers/Chief Complaint Admitting Physician: Julio Hamm MD Primary Care Provider: RAHUL Maguire Chief Complaint: SI/ WITHDRAWALS/ INTOXICATED HPI NPU History of Present Illness Luis Miguel Boss is a 31 year old male who presented to the emergency department with the following report: Chief Complaint: Psychiatric Symptoms Stated Complaint: SI/ WITHDRAWALS/ INTOXICATED Time Seen by Provider: 09/13/21 08:15 Source: EMS Mode of arrival: EMS History of Present Illness: 31-year-old male brought to the emergency room by EMS. While enforcement was called and made contact with him. There is a affidavit brought in by them and was placed on the chart. He reported he had taken a large number of pills and drank a bottle of whiskey and attempt to kill himself although the specific medication is not identified. He was discharged yesterday from the NPU unit at this hospital patient was here evidently for suicidal ideation.There was also some issues with withdrawal from benzodiazepines he had stopped using Valium and Xanax which she reportedly had been on for a number of years. The affidavit on the chart states that he made direct suicidal threats and stated he had very taken steps to execute his plan. Patient is intoxicated and essentially nonresponsive verbally. He will mumble a few things but does not give any specific answers to questions that are intelligible. His vitals are stable and he is in no respiratory distress at this time. complaint: suicidal ideation Onset (ago): hour(s) History of same: Yes Relieving factors: none Exacerbating factors: none Context: recent alcohol abuse and recent drug abuse Associated psychiatric symptoms: none If self harm: admits thoughts of self harm, has plan and has acted on plan. He was admitted to the neuropsychiatric unit for definitive treatment of those issues. Patient was put in restraints and needed multiple doses of IM medication to be stable enough for transfer to the neuropsychiatric unit. Upon arrival he began the same behaviors that were seen prior to discharge last. Being insistent about getting certain medications and expecting those medications to get to him almost instantaneously. He denied significant changes and had no explanation for why he did not go to [facility] which with his request when he decided he still needed inpatient treatment. He continued to ask to be transferred this morning. I explained to him again that hospitals do not do lateral transfers for patient convenience. That EMS is required for the most part to go to the closest emergency department that can fulfill the need. We reviewed his medication and given what we have available on the unit discussed getting Ritalin 15 mg p.o. twice daily as well as continuing his other out patient medications as prescribed. And he understood agreed proceed as documented in this note. We discussed calling his outpatient doctor in the morning to try to ascertain if she had a different plan for managing his ADHD. Additionally we agreed we would work with the outpatient pharmacy tomorrow to get a hold of his Viibryd. An excerpt of his evaluation from his last day is included below for context. Per his 09/11/2021 [facility] inpatient psychiatric evaluation: History of Present Illness Luis Miguel Boss is a 31 year old male who presented to the emergency department with the following report: Chief complaint: Psychiatric Symptoms Stated complaint: ETOH, DRUG PROBLEMS Time Seen by Provider: 09/11/21 12:34 History of Present Illness:?? HPI: [31]yo patient w/ hx of depression and anxiety BIBA for suicidal ideation with plan and severe anxiety. Patient tells me that his girlfriend Wyatt left him recently and he has been depressed since then.? Patient tells me that he plans to cut himself and no longer wants to live anymore.? Patient is extremely distressed and feels anxious.? Patient tells staff member cannot leave him alone by himself On arrival, the patient is AAOx3 and cooperative with my evaluation. No focal complaints of chest pain, shortness of breath, palpitations, N/V, focal GI/ complaints. No complaints of hallucinations. Onset: acutely x 2 days Duration: ongoing Location: home Severity: severe Associated symptoms: Deny chest pain, dyspnea, nausea, rash, palpitations or vomiting. He was admitted to the neuropsychiatric unit for definitive treatment of those issues.? Patient presents today in absolute distress.? Trembling panicking and suggested every moment if he does not get some medication or intervention he is going to explode or implode.? Significant time was spent with security and the mental health director trying to work with patient to get his needs made in the empathetic way.? He vacillated between crying about being there and threatening this typewriter repairer or others.? At times he had to be diverted as he threatened to attack other people on the unit and guarded towards him.? He was a nearly combative historian as questions would be hijacked to him needing a benzodiazepine of some sort or he is going to lose my mind. ? There was some question about his medications and initially it was thought that he had overtaken his Klonopin and was in some sort of withdrawal.? But eventually was identified that he had been given Klonopin 1 mg 1 daily as needed and has taken 3 of them appropriately.? He also had been on Concerta and Ritalin for ADHD and in his panic was asking for Suboxone.? He was on a 96-hour hold but now denies having any self-injurious/lethal intent.? However we discussed his level of agitation makes it impossible to evaluate him and agreed for discharge with any reasonableness.? We discussed that we would continue his medication as best we can and evaluate him for discharge tomorrow if he is able to maintain his demeanor and is able to discontinue his aggressive posturing.? Contact with his mother allowed us to assess his lack of overuse of the Klonopin but she expressed extreme concern about his safety.? Review of his records show 10 inpatient hospitalizations at this facility between 2011 and 2016 and some limited outpatient services here as well.? He denies significant drug use outside of alcohol but some of his records suggest otherwise it was unclear what to take away from his history that is given.? An excerpt from his last inpatient hospitalization is provided below for context. Per his 06/05/2016 [facility] inpatient psychiatric evaluation: Date of Service: Jun 05, 2016 Chief Complaint: Depression, suicidal ideation, auditory hallucinations HPI: Mr. Boss 26-year-old male who is known to our behavioral health system, who was brought in by police on a 96 hour hold after expressing suicidal ideation, and auditory hallucinations while in [facility]. Mr. Boss was recently discharged from the NPU in April 2016, he reports that since that time he is had a relapse on alcohol use triggered by a number of psychosocial stressors.? In fact it appears that he's had quite intense alcohol use, as he reports that he eventually he started drinking daily to kill himself.? Eventually he was picked up by the police and placed in [facility] for his s afety, and eventually was discharged for breathing contraband into [facility], as he had alcohol in this person.? States that he was in [facility] for approximately 1 week and after 1 week experience significant worsening depressed mood, hopelessness suicidal ideation, and also auditory hallucinations specifically in the form of hearing the voice of his grandmother. He states that even prior to his alcohol use that occasionally he would hear voices, and does recall being prescribed Thorazine to help with this.? It is unclear at this time the timing of his auditory hallucinations with his drinking pattern.? He denies any other substance use. In addition to the symptoms above he does admit to anxiety attacks particularly when he is thinking about recent events, that occasionally may rise to the level of panic. Allergies: Coded Allergies: ?? ? MILK (Unverified? Adverse Reaction, Unknown, cramping,diarrhea, 05/09/16) Pt does not drink milk. Tolerates small amount milk on cereal. Milk ok cooked in foods. Tolerates yogurt, cheese, cot cheese, pudding, ice cream. Uncoded Allergies: ?? ? ANTIHISTAMINES (Allergy, Unknown, 04/02/12) Active Meds: Current Hospital Medications: ?Medications ? (Trade) ?Dose ?Ordered ?Sig/Brenda ?Route ?PRN Reason ?Start Time ?Stop Time Status Last Admin Dose Admin ?Lorazepam ? (Ativan Tab) ?0.5 mg ?Q4H? PRN ?PO ?FOR MILD ANXIETY ?06/04/16 18:30 ?Lorazepam ? (Ativan Tab) ?1 mg ?Q4H? PRN ?PO ?FOR MODERATE ANXIETY ?06/04/16 18:30 ?Lorazepam ? (Ativan Tab) ?2 mg ?Q4H? PRN ?PO ?FOR SEVERE ANXIETY ?06/04/16 18:30 ?Lorazepam ? (Ativan Inj) ?2 mg ?Q4H? PRN ?IM ?For Severe Aggression ?06/04/16 18:30 ?Haloperidol ?Lactate ? (Haldol Inj) ?5 mg ?Q4H? PRN ?IM ?Severe Aggression ?06/04/16 18:30 ?Diphenhydramine ?HCl ? (Benadryl Inj) ?50 mg ?ONCE? PRN ?IV ?Severe Extrapyramidal Symptoms ?06/04/16 18:30 ?Benztropine ?Mesylate ? (Cogentin Tab) ?1 mg ?BID? PRN ?PO ?Mild Extrapyramidal symptoms ?06/04/16 18:30 ?Benztropine ?Mesylate ? (Cogentin Inj) ?1 mg ?ONCE? PRN ?IM ?Severe Extrapyramidal Symptom ?06/04/16 18:30 ?Acetaminophen ? (Tylenol Tab) ?650 mg ?Q4H? PRN ?PO ?FOR MILD PAIN ?06/04/16 18:30 ?Nicotine ? (Nicoderm Patch) ?21 mg ?DAILY? PRN ?TD ?FOR WITHDRAWAL ?06/04/16 18:30 ?Nicotine ?Polacrilex ? (Nicotine Gum) ?2 mg ?Q2H? PRN ?PO ?Withdrawal ?06/04/16 18:30 ?Haloperidol ? (Haldol Tab) ?5 mg ?Q4H? PRN ?PO ?For agitation ?06/04/16 18:30 ?Lorazepam ? (Ativan Tab) ?2 mg ?Q4H? PRN ?PO ?FOR AGITATION ?06/04/16 18:30 ?Trazodone HCl ? (Trazodone) ?100 mg ?BEDTIME ?PO ? ?06/04/16 22:00 ? ? 06/04/16 21:35 ? ?Olanzapine ? (Zyprexa Zydis) ?5 mg ?BID? PRN ?PO ?AGITATION ?06/04/16 21:00 ?Thiamine ?Mononitrate ? (Thiamine Tab) ?100 mg ?DAILY ?PO ? ?06/06/16 10:00 ?Multivitamins ?Therapeutic ? (Therapeutic ?Multivitamin) ?1 ea ?DAILY ?PO ? ?06/05/16 10:00 ? ? 06/05/16 10:06 ? ?Folic Acid/ ?Cyanocobalamin/ ?pyridoxin ? (Folic Acid Tab) ?1 mg ?DAILY ?PO ? ?06/05/16 10:00 ? ? 06/05/16 10:06 ? ?Lorazepam ? (Ativan Inj) ?2 mg ?PRN? PRN ?IV ?FOR WITHDRAWAL ?06/05/16 09:15 ?Lorazepam ? (Ativan Inj) ?2 mg ?PRN? PRN ?IM ?for Withdrawal ?06/05/16 09:15 ?Lorazepam ? (Ativan Tab) ?2 mg ?PRN? PRN ?PO ?Withdrawal ?06/05/16 09:15 ? Past Medical History Past Medical History: Is as per HPI, history: Details are unchanged from the last admission PAST PSYCHIATRIC HISTORY: -Did not follow-up at [facility] as scheduled because he was in [place] [facility] -States that he had not been taking his medications as prescribed which at this time were Viibryd, trazodone, gabapentin PAST FAMILY PSYCHIATRIC HISTORY: -Non-contributory SOCIAL HISTORY: -Recently in [facility] [facility] as described in HPI PAST MEDICAL HISTORY: -None active Meds NPU Home Medications Medication Instructions Recorded Confirmed Last Taken Type clonazepam 1 mg tablet 1 mg PO DAILY PRN 09/11/21 09/13/21 Unknown History gabapentin 400 mg capsule 800 mg PO TID 09/11/21 09/13/21 Unknown History hydroxyzine pamoate 50 mg capsule 50 mg PO BID 09/11/21 09/13/21 Unknown History methylphenidate HCl 10 mg tablet 10 mg PO DAILY 09/11/21 09/13/21 Unknown History methylphenidate HCl 18 mg 18 mg PO DAILY 09/11/21 09/13/21 Unknown History tablet,extended release 24 hr olanzapine 5 mg tablet 5 mg PO DAILY 09/11/21 09/13/21 Unknown History zaleplon 10 mg capsule 20 mg PO BEDTIME 09/11/21 09/13/21 Unknown History Allergies Allergy/AdvReac Type Severity Reaction Status Date / Time diphenhydramine Allergy Unknown Verified 09/13/21 17:58 [From Benadryl] hydroxyzine [From Vistaril] Allergy Unknown Verified 09/13/21 17:58 PFSH NPU PFSH: Medical History Anxiety Depression Social History Smoking and tobacco status: former smoker Alcohol intake: current Adopted: No Mental Status Exam MSE Comments: This is a well-nourished well-developed white male in hospital scrubs with red hair with adequate grooming and eye contact.? No abnormal movements except for psychomotor agitation Cooperative with exam in moderate to extreme distress.? Speech was normal rate and volume.? Mood described as anxious, affect congruent.? Thought process organized.? Thought content: Patient denied suicidal or homicidal ideation, no delusions reported or noted, he denied auditory or visual hallucinations.? Attention and concentration were limited and memory was unreliable at times reliable at others but none were formally tested.? He is alert and oriented x3.? Insight and judgment are limited and impulse control is limited. Vitals/I&O/Wt Last Vital Signs Temp 98.0 F 09/14/21 07:37 Pulse 70 09/14/21 07:37 Resp 18 09/14/21 07:37 BP 121/80 09/14/21 07:37 Pulse Ox 98 09/14/21 07:37 Weight last 48 hrs Weight 73.482 kg Weight 73.482 kg Data NPU : 09/13/21 08:44 09/13/21 08:44 A&P Assessment and plan (1) ADHD (attention deficit hyperactivity disorder), combined type: Status: Acute (2) ALIDA (generalized anxiety disorder): Status: Acute (3) Anxiety: Status: Acute (4) Panic attack: Status: Acute (5) Major depressive disorder, recurrent: Status: Acute Plan This is a 31-year-old white male with a long history of ADHD, anxiety and mental health challenges with multiple inpatient hospitalizations the last of which was in 2017 who presents in great distress vacillating between saying he needs to stay for multiple interventions and needing discharged so he can go to [facility] for what he believes to be better or more specific treatment. 1.? Continue current medication.? Start Ritalin 50 mg p.o. twice daily given the absence of Concerta on the formulary, and work to get Viibryd from outpatient pharmacy tomorrow. 2.? Continue every 15 minute checks for safety. 3.? Encourage individual, group and milieu therapies. 4.? Encourage sober living treatment after discharge at the highest level of care to which he is willing to commit.? Significant concerns for addictive behavior exist. Involuntary Hold Information 96 Hour Hold: 96 Hour Involuntary Admission: No 96 Hour Hold Ending Date: 09/17/21 96 Hour Hold Ending Time: 15:45 Attestations NPU Medical Necessity Statement*: Inpatient hospitalization is medically necessary and the clinically appropriate intervention at this time. We will monitor me dication to make changes as indicated. Patient will be in the hospital for over two midnights. Likely length of stay 2-4 days.? Coding Level of Care Code Acute [facility] Visitor for g Fwd Diagnoses ADHD (attention deficit hyperactivity disorder), combined type F90.2 ALIDA (generalized anxiety disorder) F41.1 Anxiety F41.9 Panic attack F41.0 Major depressive disorder, recurrent F33.9
[2021-09-14] MEDS: nicotine 21 mg Patch 1 PATCH TRANSDERMA (09:02)
[2021-09-14] MEDS: ziprasidone 20 mg/mL SDV IM ×2 (09:33→19:27)
[2021-09-14] MEDS: OLANZapine 5 mg ODT PO (12:19)
[2021-09-14 14:00] VITALS: BP 127/78; PULSE 113; RESP 18; TEMP 36.8; O2SAT 97
[2021-09-14] MEDS: methylphenidate 10 mg Tablet 15 MG PO (15:02)
[2021-09-14] MEDS: acetaminophen 325 mg Tablet 650 MG PO (16:20)
[2021-09-14] MEDS: fluoxetine 20 mg Capsule PO (16:20)
[2021-09-14] MEDS: blistex lip oint 7 gm Tube 1 APPLIC TOPICAL (16:25)
[2021-09-14] MEDS: nicotine 4 mg lozenge MUCOUS MEM ×2 (16:57→18:50)
[2021-09-14] MEDS: haloperidol 5 mg Tablet PO (17:17)
--- NOTE | 2021-09-14 19:27 | PC.NURSE ---
Pt was having SI and horrible thoughts of self harm, Pt did bang his forehead on the door six times. Administered 20mg IM Geodon per Dr. Hamm.
[2021-09-14] MEDS: trazodone 50 mg Tablet PO (19:48)
[2021-09-14 21:10] VITALS: BP 119/84; PULSE 92; RESP 18; TEMP 37.1; O2SAT 96
[2021-09-15 06:00] VITALS: BP 111/76; PULSE 67; RESP 18; TEMP 37.3; O2SAT 100
--- NOTE | 2021-09-15 06:08 | PC.NURSE ---
Pt refused 6am scheduled razia. stated it's too much for me.
[2021-09-15] MEDS: nicotine 4 mg lozenge MUCOUS MEM ×6 (06:10→19:33)
[2021-09-15] MEDS: OLANZapine 5 mg ODT PO ×2 (06:44→17:27)
[2021-09-15] MEDS: methylphenidate 10 mg Tablet 15 MG PO ×2 (08:09→15:05)
[2021-09-15] MEDS: OLANZapine 5 mg TABLET PO (08:09)
[2021-09-15] MEDS: CLONazepam 1 mg Tablet PO (08:09)
[2021-09-15] MEDS: gabapentin 400 mg Capsule 800 MG PO ×3 (08:09→20:18)
[2021-09-15] MEDS: fluoxetine 20 mg Capsule PO ×2 (10:00→18:03)
[2021-09-15] MEDS: haloperidol 5 mg Tablet PO (11:51)
--- NOTE | 2021-09-15 11:52 | PC.NURSE ---
PT REPORTS INCREASED ANXIETY AND THOUGHTS OF SELF HARM TO DIMINISH FEELINGS OF HURTING HIMSELF. PT STATES WHEN HE GETS THIS ANXIOUS AND OUT OF HIS HEAD HE HURTS HIMSELF TO BE ABLE TO FOCUS ON PHYSICAL PAIN INSTEAD OF ANXIETY AND FEELING THE WAY I FEEL
--- NOTE | 2021-09-15 14:41 | P.NPUPN_ITS ---
Subjective NPU Subjective: Patient presents today reporting that he is doing okay. We discussed that I had an opportunity to speak with his doctor who was very consistent her experience compared to arch. With him. She has had the same challenges that we experience here with his low frustration tolerance and almost the man for immediate gratification. We agreed that she would consider making some changes that we would consider depending on his length of stay. At this point he and I discussed increasing the Ritalin given that he does not have the long-acting agent discussing 20 mg 2-3 times a day. Otherwise we will work with the outpatient pharmacy to get his Viibryd still. Mental Status Exam MSE Comments: This is a well-nourished well-developed white male in hospital scrubs with red hair with adequate grooming and eye contact.? No abnormal movements except for psychomotor agitation. Cooperative with exam in mild to moderate distress.? Speech was normal rate and volume.? Mood described as anxious, affect congruent.? Thought process organized.? Thought content: Patient denied suicidal or homicidal ideation, no delusions reported or noted, he denied auditory or visual hallucinations.? Attention and concentration were limited and memory was unreliable at times reliable at others but none were formally t ested.? He is alert and oriented x3.? Insight and judgment are limited and impulse control is limited. Vitals/I&O/Wt Last Vital Signs Temp 99.2 F 09/15/21 06:00 Pulse 67 09/15/21 06:00 Resp 18 09/15/21 06:00 BP 111/76 09/15/21 06:00 Pulse Ox 100 09/15/21 06:00 Weight last 48 hrs Weight 73.482 kg Weight 73.482 kg Data NPU : 09/13/21 08:44 09/13/21 08:44 A&P Assessment and plan (1) Major depressive disorder, recurrent: Status: Acute (2) ADHD (attention deficit hyperactivity disorder), combined type: Status: Acute (3) ALIDA (generalized anxiety disorder): Status: Acute (4) Anxiety: Status: Acute (5) Panic attack: Status: Acute Plan This is a 31-year-old white male with a long history of ADHD, anxiety and mental health challenges with multiple inpatient hospitalizations the last of which was in 2017 who presents in great distress vacillating between saying he needs to stay for multiple interventions and needing discharged so he can go to [facility] for what he believes to be better or more specific treatment. 1.? Continue current medication.? We will increase Ritalin from 15 mg p.o. twice daily to 20 mg twice daily or 3 times daily, given the absence of Concerta on the formulary, and work to get Viibryd from outpatient pharmacy tomorrow. 2.? Continue every 15 minute checks for safety. 3.? Encourage individual, group and milieu therapies. 4.? Encourage sober living treatment after discharge at the highest level of care to which he is willing to commit.? Significant concerns for addictive behavior exist. Involuntary Hold Information 96 Hour Hold: 96 Hour Involuntary Admission: No 96 Hour Hold Ending Date: 09/17/21 96 Hour Hold Ending Time: 15:45 Attestations NPU Medical Necessity Statement*: Inpatient hospitalization is medically necessary and the clinically appropriate intervention at this time. We will monitor medication to make changes as indicated. Likely length of stay 1-3 days.? Coding Level of Care Code Acute Operations Specialist for [facility] Fwd Diagnoses Major depressive disorder, recurrent F33.9 ADHD (attention deficit hyperactivity disorder), combined type F90.2 ALIDA (generalized anxiety disorder) F41.1 Anxiety F41.9 Panic attack F41.0
[2021-09-15] MEDS: trazodone 50 mg Tablet PO (20:19)
[2021-09-15 21:24] VITALS: BP 114/80; PULSE 78; RESP 18; TEMP 36.5; O2SAT 99
[2021-09-15] MEDS: ziprasidone 20 mg/mL SDV IM (21:39)
[2021-09-16 06:00] VITALS: RESP 18
--- NOTE | 2021-09-16 06:30 | PC.NURSE ---
PT REFUSED SCHEDULED AM DOSE OF GEODON AGAIN THIS AM.
[2021-09-16] MEDS: nicotine 4 mg lozenge MUCOUS MEM ×4 (08:29→17:21)
[2021-09-16] MEDS: fluoxetine 20 mg Capsule PO ×2 (08:29→17:21)
[2021-09-16] MEDS: methylphenidate 10 mg Tablet 20 MG PO ×2 (08:29→14:39)
[2021-09-16] MEDS: OLANZapine 5 mg TABLET PO (08:29)
[2021-09-16] MEDS: gabapentin 400 mg Capsule 800 MG PO ×2 (08:29→14:39)
[2021-09-16] MEDS: CLONazepam 1 mg Tablet PO (11:24)
[2021-09-16 14:00] VITALS: BP 114/80; PULSE 78; RESP 18; TEMP 36.5; O2SAT 99
--- NOTE | 2021-09-16 16:58 | W.PM.NPUDCS ---
Diagnoses at Discharge Discharge Diagnosis (1) Major depressive disorder, recurrent: Status: Acute (2) ADHD (attention deficit hyperactivity disorder), combined type: Status: Acute (3) ALIDA (generalized anxiety disorder): Status: Acute (4) Anxiety: Status: Acute (5) Panic attack: Status: Acute Reason for Visit Reason for Visit: SI/ WITHDRAWALS/ INTOXICATED Brief History: History of Present Illness Luis Miguel Boss is a 31 year old male who presented to the emergency department with the following report: Chief Complaint: Psychiatric Symptoms Stated Complaint: SI/ WITHDRAWALS/ INTOXICATED Time Seen by Provider: 09/13/21 08:15 Source: EMS Mode of arrival: EMS History of Present Illness:?? 31-year-old male brought to the emergency room by EMS.? While enforcement was called and made contact with him.? There is a affidavit brought in by them and was placed on the chart.? He reported he had taken a large number of pills and drank a bottle of whiskey and attempt to kill himself although the specific medication is not identified.? He was discharged yesterday from the NPU unit at this hospital patient was here evidently for suicidal ideation.There was also some issues with withdrawal from benzodiazepines he had stopped using Valium and Xanax which she reportedly had been on for a number of years.? The affidavit on the chart states that he made direct suicidal threats and stated he had very taken steps to execute his plan.? Patient is intoxicated and essentially nonresponsive verbally.? He will mumble a few things but does not give any specific answers to questions that are intelligible.? His vitals are stable and he is in no respiratory distress at this time. MD complaint: suicidal ideation Onset (ago): hour(s) History of same: Yes Relieving factors: none Exacerbating factors: none Context: recent alcohol abuse and recent drug abuse Associated psychiatric symptoms: none If self harm: admits thoughts of self harm, has plan and has acted on plan. He was admitted to the neuropsychiatric unit for definitive treatment of those issues.? Patient was put in restraints and needed multiple doses of IM medication to be stable enough for transfer to the neuropsychiatric unit.? Upon arrival he began the same behaviors that were seen prior to discharge last.? Being insistent about getting certain medications and expecting those medications to get to him almost instantaneously.? He denied significant changes and had no explanation for why he did not go to [facility] with his request when he decided he still needed inpatient treatment.? He continued to ask to be transferred this morning.? I explained to him again that hospitals do not do lateral transfers for patient convenience.? That EMS is required for the most part to go to the closest emergency department that can fulfill the need.? We reviewed his medication and given what we have available on the unit discussed getting Ritalin 15 mg p.o. twice daily as well as continuing his other outpatient medications as prescribed.? And he understood agreed proceed as documented in this note.? We discussed calling his outpatient doctor in the morning to try to ascertain if she had a different plan for managing his ADHD.? Additionally we agreed we would work with the outpatient pharmacy tomorrow to get a hold of his Viibryd.? An excerpt of his evaluation from his last day is included below for context. Per his 09/11/2021 [facility] inpatient psychiatric evaluation: History of Present Illness Luis Miguel Boss is a 31 year old male who presented to the emergency department with the following report: Chief complaint: Psychiatric Symptoms Stated complaint: ETOH, DRUG PROBLEMS Time Seen by Provider: 09/11/21 12:34 History of Present Illness:?? HPI: [31]yo patient w/ hx of depression and anxiety BIBA for suicidal ideation with plan and severe anxiety. Patient tells me that his girlfriend Wyatt left him recently and he has been depressed since then.? Patient tells me that he plans to cut himself and no longer wants to live anymore.? Patient is extremely distressed and feels anxious.? Patient tells staff member cannot leave him alone by himself On arrival, the patient is AAOx3 and cooperative with my evaluation. No focal complaints of chest pain, shortness of breath, palpitations, N/V, focal GI/ complaints. No complaints of hallucinations. Onset: acutely x 2 days Duration: ongoing Location: home Severity: severe Associated symptoms: Deny chest pain, dyspnea, nausea, rash, palpitations or vomiting. He was admitted to the neuropsychiatric unit for definitive treatment of those issues.? Patient presents today in absolute distress.? Trembling panicking and suggested every moment if he does not get some medication or intervention he is going to explode or implode.? Significant time was spent with security and the mental health director trying to work with patient to get his needs made in the empathetic way.? He vacillated between crying about being there and threatening this specification writer or others.? At times he had to be diverted as he threatened to attack other people on the unit and guarded towards him.? He was a nearly combative historian as questions would be hijacked to him needing a benzodiazepine of some sort or he is going to lose my mind. ? There was some question about his medications and initially it was thought that he had overtaken his Klonopin and was in some sort of withdrawal.? But eventually was identified that he had been given Klonopin 1 mg 1 daily as needed and has taken 3 of them appropriately.? He also had been on Concerta and Ritalin for ADHD and in his panic was asking for Suboxone.? He was on a 96-hour hold but now denies having any self-injurious/lethal intent.? However we discussed his level of agitation makes it impossible to evaluate him and agreed for discharge with any reasonableness.? We discussed that we would continue his medication as best we can and evaluate him for discharge tomorrow if he is able to maintain his demeanor and is able to discontinue his aggressive posturing.? Contact with his mother allowed us to assess his lack of overuse of the Klonopin but she expressed extreme concern about his safety.? Review of his records show 10 inpatient hospitalizations at this facility between 2011 and 2016 and some limited outpatient services here as well.? He denies significant drug use outside of alcohol but some of his records suggest otherwise it was unclear what to take away from his history that is given.? An excerpt from his last inpatient hospitalization is provided below for context. Per his 06/05/2016 [facility] inpatient psychiatric evaluation: Date of Service: Jun 05, 2016 Chief Complaint: Depression, suicidal ideation, auditory hallucinations HPI: Mr. Boss 26-year-old male who is known to our behavioral health system, who was brought in by police on a 96 hour hold after expressing suicidal ideation, and auditory hallucinations while in senior living. Mr. Boss was recently discharged from the NPU in April 2016, he reports that since that time he is had a relapse on alcohol use triggered by a number of psychosocial stressors.? In fact it appears that he's had quite intense alcohol use, as he reports that he eventually he started drinking daily to kill himself.? Eventually he was picked up by the police and placed in senior living for his safety, and eventually was discharged for breathing contraband into senior living, as he had alcohol in this person.? States that he was in senior living for approximately 1 week and after 1 week experience significant worsening depressed mood, hopelessness suicidal ideation, and also auditory hallucinations specifically in the form of hearing the voice of his grandmother. He states that even prior to his alcohol use that occasionally he would hear voices, and does recall being prescribed Thorazine to help with this.? It is unclear at this time the timing of his auditory hallucinations with his drinking pattern.? He denies any other substance use. In addition to the symptoms above he does admit to anxiety attacks particularly when he is thinking about recent events, that occasionally may rise to the level of panic. Hospital Course Hospital Course He slowly acclimated to the individual, group and milieu therapies provided.?But was much better on this visit with self-control. We continued his medications and worked with his outpatient Psychiatrist to make adjustment to his Concerta/ritalin dosage. He had significant improvement.? He was able to control his impulses over the observation.? He was able to contract for safety, outside the hospital prior to discharge.? Discharge during the hospitalization, patient had routine laboratory studies which were within normal limits except for few outliers.? Additionally there was a general medical evaluation which was also within normal limits and revealed no new acute processes. Discharge Summary: At the time of discharge, he denied psychosis or lethality.? Mood and anxiety were well managed.? Patient endorsed a plan to avoid all drugs of abuse and follow-up with the aftercare recommendations of the treatment team.? Patient was evaluated and deemed to be absent credible lethality, and had achieved the maximum benefit from an inpatient hospitalization, so was discharged. Involuntary Hold Information 96 Hour Hold: 96 Hour Involuntary Admission: No 96 Hour Hold Ending Date: 09/17/21 96 Hour Hold Ending Time: 15:45 Mental Status Exam MSE Comments: This is a well-nourished well-developed white male in hospital scrubs with red hair with adequate grooming and eye contact.? No abnormal movements.? Cooperative with exam in no acute distress.? Speech was normal rate and volume.? Mood described as better, affect congruent.? Thought process organized.? Thought content: Patient denied suicidal or homicidal ideation, no delusions reported or noted, he denied auditory or visual hallucinations.? Attention and concentration were limited and memory was unreliable at times reliable at others but none were formally tested.? He is alert and oriented x3.? Insight and judgment are limited, but improving and impulse control is limited. Discharge Data Studies Completed and Pending: Laboratory Results WBC 6.2 10^3/uL (4.0- 10.0) 09/13/21 08:44 RBC 4.71 10^6/uL (4.1 -5.3) 09/13/21 08:44 Hgb 13.5 g/dL (11.7-1 6.6) 09/13/21 08:44 Hct 39.6 % (42.0-52.0 ) L 09/13/21 08:44 MCV 84.1 fl (80-94) 09/13/21 08:44 MCH 28.7 pg (28.0-34. 0) 09/13/21 08:44 MCHC 34.1 g/dL (30.0-3 6.0) 09/13/21 08:44 RDW 11.9 % (12.1-15.1 ) L 09/13/21 08:44 Plt Count 255 10^3/cmm (130 -400) 09/13/21 08:44 MPV 9.9 fL (7.4-10.4) 09/13/21 08:44 Neut % (Auto) 63.7 % 09/13/21 08:44 Lymph % (Auto) 25.2 % 09/13/21 08:44 [place] % (Auto) 9.4 % 09/13/21 08:44 Eos % (Auto) 1.0 % 09/13/21 08:44 Baso % (Auto) 0.5 % 09/13/21 08:44 Neut # (Auto) 3.92 10^3/uL (1.8 -7.7) 09/13/21 08:44 Lymph # (Auto) 1.6 10^3/uL (0.8- 4.8) 09/13/21 08:44 [place] # (Auto) 0.6 10^3/uL (0.2- 0.9) 09/13/21 08:44 Eos # (Auto) 0.1 10^3/uL (0.0- 0.8) 09/13/21 08:44 Baso # (Auto) 0.0 10^3/uL (0.0- 0.1) 09/13/21 08:44 Nucleated RBC % (a uto) 0 % 09/13/21 08:44 Nucleated RBCs # 0.0 /100WBC 09/13/21 08:44 Sodium 146 mmol/L (136-1 45) H 09/13/21 08:44 Potassium 3.6 mmol/L (3.5-5 .1) 09/13/21 08:44 Chloride 109 mmol/L (98-10 7) H 09/13/21 08:44 Carbon Dioxide 24 mmol/L (22-29) 09/13/21 08:44 Anion Gap 16.6 (5-19) 09/13/21 08:44 BUN 10 mg/dL (6-20) 09/13/21 08:44 Creatinine 0.9 mg/dL (0.7-1. 2) 09/13/21 08:44 GFR Calculation 97.2 mL/min (90-1 30) 09/13/21 08:44 Glucose 101 mg/dL (65-115 ) 09/13/21 08:44 POC Glucose 97 mg/dL (70-110) 09/13/21 08:26 Calculated Osmolal ity 301 mOsm/kg (285- 295) H 09/13/21 08:44 Calcium 8.5 mg/dL (8.5-10 .5) 09/13/21 08:44 Total Bilirubin 0.2 mg/dL (0.15-1 .2) 09/13/21 08:44 AST 31 U/L (0-40) 09/13/21 08:44 ALT 19 U/L (0-41) 09/13/21 08:44 Alkaline Phosphata se 67 IU/L (40-130) 09/13/21 08:44 Total Protein 6.7 g/dL (6.6-8.7 ) 09/13/21 08:44 Albumin 4.6 g/dL (3.5-5.2 ) 09/13/21 08:44 Globulin 2.1 g/dL (1.3-4.6 ) 09/13/21 08:44 Salicylates < 0.3 mg/dL (3-10 ) L 09/13/21 08:44 Urine Opiates Scre en Negative ng/mL (N egative) 09/13/21 08:23 Acetaminophen < 5.0 ug/mL (10-3 0) L 09/13/21 08:44 Ur Barbiturates Sc reen Negative ng/mL (N egative) 09/13/21 08:23 Ur Phencyclidine S crn Negative ng/mL (N egative) 09/13/21 08:23 Ur Amphetamines Sc reen Negative ng/mL (N egative) 09/13/21 08:23 U Benzodiazepines Scrn Positive ng/mL (N egative) H 09/13/21 08:23 Urine Cocaine Scre en Negative ng/mL (N egative) 09/13/21 08:23 U Marijuana (THC) Screen Negative ng/mL (N egative) 09/13/21 08:23 Ethyl Alcohol 211 mg/dL (0-10) H 09/13/21 08:44 Vitals: Last Vital Signs Temp 97.7 F 09/16/21 14:00 Pulse 78 09/16/21 14:00 Resp 18 09/16/21 14:00 BP 114/80 09/16/21 14:00 Pulse Ox 99 09/16/21 14:00 Discharge Plan Discharge Patient Disposition: Home Condition: Stable Prescriptions: New Concerta 54 mg tablet extended release 24hr 54 mg PO QAM 30 Days Qty: 30 0RF methylphenidate HCl 10 mg Tablet 10 mg PO DAILY Qty: 30 0RF Rx Instructions: q1500 Viibryd 40 mg tablet 40 mg PO DAILY 30 Days Qty: 30 0RF Rx Instructions: must administer with a meal/food Continued olanzapine 5 mg tablet 5 mg PO DAILY 0RF clonazepam 1 mg Tablet 1 mg PO DAILY PRN (Reason: Anxiety) 0RF hydroxyzine pamoate 50 mg Capsule 50 mg PO BID 0RF zaleplon 10 mg capsule 20 mg PO BEDTIME 0RF gabapentin 400 mg Capsule 800 mg PO TID 0RF Discontinued methylphenidate HCl 10 mg tablet 10 mg PO DAILY 0RF methylphenidate HCl 18 mg tablet extended release 24hr 18 mg PO DAILY 0RF Discharge Orders: Discharge Order (Routine); Ordered 09/16/21 Ordered By: Julio Hamm Referrals: [facility] [Other] - 10/01/21 [facility] [Outside] Norman Bhatti INTRUSION ANALYST [Primary Care Provider] - Discharge Diet: Regular Discharge Activity: Resume usual activity Patient Instructions: ADHD in Adults (ED), Depression (ED), Generalized Anxiety Disorder (ED), Opioid Safety Activity Restrictions/Additional Instructions: resume normal activity Discharge Attestations NPU Time Spent in Discharge Care*: less than 30 min Specific Discharge Activities: Specific discharge activities: educating patient, discussing with trimming caser/social workers/dc planners, documenting/other paperwork and evaluating patient/reviewing data Coding Level of Care Code Acute [facility] DC note Diagnoses Major depressive disorder, recurrent F33.9 ADHD (attention deficit hyperactivity disorder), combined type F90.2 ALIDA (generalized anxiety disorder) F41.1 Anxiety F41.9 Panic attack F41.0
[2021-09-16 17:04] VITALS: BP 114/80; PULSE 78; RESP 18; TEMP 36.5; O2SAT 99
--- NOTE | 2021-09-17 10:19 | PC.NURSE ---
discharge med called into [facility] pharmacy [phone], spoke to Robin Klonopin 1 mg po daily PRN for anxiety, QTY 6, no refill per Julio Holden(physician)
== END 2021-09-16 18:19 | disposition home or self-care (01) | DRG 885 ==
LOC: ER 11:13 → NP 11:39
PROVIDERS: Physician Assistant; Admitting Provider Psychiatry & Neurology Psychiatry; Emergency Provider Family Medicine; PCP Nurse Practitioner; Visit Provider Psychiatry & Neurology Psychiatry
DX: F33.9 Major depressive disorder, recurrent, unspecified (principal); R45.851 Suicidal ideations; F90.2 Attention-deficit hyperactivity disorder, combined type; F10.129 Alcohol abuse with intoxication, unspecified; Y90.9 Presence of alcohol in blood, level not specified; F41.1 Generalized anxiety disorder; F41.0 Panic disorder [episodic paroxysmal anxiety]
CPT/HCPCS: 36416; 80053; 80306; 80307; 82962; 85025; 96372; 97150; 97165; 99285; J2060; J3486